=== PATIENT | male | born 1965 | race Caucasian/White ===

== ENCOUNTER → 2017-04-18 | Outpatient (CLI) | payer OTHER ==
--- NOTE | 2017-04-18 22:56 | US ---
EXAMINATION TYPE: US carotid duplex BILAT DATE OF EXAM: 04/18/2017 COMPARISON: NONE CLINICAL HISTORY: 51-year-old male H53.9 Visual Disturbance. TECHNIQUE: Carotid duplex ultrasound examination. Indirect Doppler criteria was utilized. FINDINGS: EXAM MEASUREMENTS: RIGHT: Peak Systolic Velocity (PSV) cm/sec ----- Right CCA: 93.0 ----- Right ICA: 90.8 ----- Right ECA: 141.9 ICA/CCA ratio: 1.0 RIGHT: End Diastole cm/sec ----- Right CCA: 23.6 ----- Right ICA: 23.7 ----- Right ECA: 22.8 LEFT: Peak Systolic Velocity (PSV) cm/sec ----- Left CCA: 101.7 ----- Left ICA: 100.5 ----- Left ECA: 114.8 ICA/CCA ratio: 1.0 LEFT: End Diastole cm/sec ----- Left CCA: 25.4 ----- Left ICA: 22.7 ----- Left ECA: 19.8 VERTEBRALS (direction of flow): Right Vertebral: Antegrade Left Vertebral: Antegrade Mild atherosclerotic change in the right bifurcation. IMPRESSION: No hemodynamically significant stenosis appreciated in either internal carotid artery. Criteria for Assigning % of Stenosis / Diameter reduction (Estimation based on the indirect measurements of the internal carotid artery velocities (ICA PSV). 1. Normal (no stenosis)=ICA PSV < 125 cm/s: ratio < 2.0: ICA EDV<40 cm/s. 2. Less than 50% stenosis=ICA PSV < 125 cm/s: ratio < 2.0: ICA EDV<40 cm/s. 3. 50 to 69% stenosis=ICA PSV of 125 to 230 cm/s: ration 2.0 ? 4.0: ICA EDV 40-100 cm/s. 4. Greater than 70% stenosis to near occlusion= ICA PSV > 230 cm/s: ratio > 4.0: ICA EDV > 100 cm/s. 5. Near occlusion= ICA PSV velocities may be low or undetectable: variable ratio and ICA EDV. 6. Total occlusion=unable to detect flow.
== END ==
LOC: RADUSWWP 16:03
PROVIDERS: ATTEND Family Medicine
DX: H53.9 Unspecified visual disturbance (principal)
CPT/HCPCS: 93880

== ENCOUNTER → 2023-06-19 | Outpatient (CLI) | payer MEDICARE, OTHER ==
--- NOTE | 2023-06-19 11:28 | CT ---
EXAMINATION TYPE: CT heart w calcium score DATE OF EXAM: 06/19/2023 COMPARISON: HISTORY: Screening for cardiovascular disorder. 213.9 CT DLP: 450.7 mGycm Automated exposure control for dose reduction was used. CT CALCIUM SCORING Coronary calcium is a marker for plaque (fatty deposits) in a blood vessel or atherosclerosis (harden ing of the arteries). The presence and amount of calcium detected in a coronary artery by the CT sca n, indicates the presence and amount of atherosclerotic plaque. These calcium deposits appear years before the development of heart disease symptoms such as chest pain and shortness of breath. A calcium score is computed for each of the coronary arteries based upon the volume and density of th e calcium deposits. This can be referred to as your calcified plaque burden. It does not correspond directly to the percentage of narrowing in the artery but does correlate with the severity of the un derlying coronary atherosclerosis. PROCEDURE TECHNIQUE - Prospective Gating was used. Slice thickness: 3mm. Density threshold (HU): 130, Pixel threshold: 3, Algorithm: discrete. RESULTS Region: LM Calcium Score ([place]): 1.1 Volume (mm3): 3.31 Mass (g): 1.1 Region: RCA Calcium Score ([place]): 18.4 Volume (mm3): 28.71 Mass (g): 9.57 Region: LAD Calcium Score ([place]): 169.13 Volume (mm3): 167.85 Mass (g): 55.95 Region: CX Calcium Score ([place]): 21.72 Volume (mm3): 25.95 Mass (g): 8.65 Region: PDA Calcium Score ([place]): 0 Volume (mm3): 0 Mass (g): 0 Total: Calcium Score ([place]): 210.35 Volume (mm3): 225.82 Mass (g): 75.27 TOTAL CALCIUM SCORE: 210.35 Other: Calcified granuloma in the left upper lobe. IMPRESSION: Calcium Score: 210.35 Implication: Definite at least moderate atherosclerotic plaque likely, significant narrowings possib le. = CALCIUM SCORE IMPLICATION RISK OF C ORONARY ARTERY DISEASE 0 No identifiable plaque Very low, generally less than 5% 1-10 Minimal identifiable plaque Very unlikely, less than 10% 11-100 Definite, at least mild atherosclerotic plaque Mild or m inimal coronary narrowings likely 101-400 Definite, at least moderate atherosclerotic plaque Mild coronary ar eloina disease highly likely, significant narrowing possible 401 or Higher Extensive atherosclerotic plaque High lik elihood of at least one significant coronary narrowing
== END | disposition home or self-care (01) ==
LOC: RADCTMAIN 09:27
PROVIDERS: ATTEND Family Medicine
DX: Z13.6 Encounter for screening for cardiovascular disorders (principal); I25.10 Atherosclerotic heart disease of native coronary artery without angina pectoris
CPT/HCPCS: 75571

== ENCOUNTER 2023-06-21 13:24 | Observation (INO) | payer MEDICARE, OTHER ==
[2023-06-21 13:43] VITALS: BP 133/74; RESP 20; TEMP 98.9
[2023-06-21 14:05] LABS: Basophils # (A) 0.1 k/uL (0-0.2); Basophils % (A) 1 %; Eosinophils # (A) 0.2 k/uL (0-0.7); Eosinophils % (A) 2 %; HCT 46.7 % (39.0-53.0); HGB 15.5 gm/dL (13.0-17.5); Lymphocytes # (A) 1.6 k/uL (1.0-4.8); Lymphocytes % (A) 18 %; MCH 29.5 pg (25.0-35.0); MCHC 33.2 g/dL (31.0-37.0); MCV 88.9 fL (80.0-100.0); Mean Platelet Volume 6.6; Monocytes # (A) 0.5 k/uL (0-1.0); Monocytes % (A) 6 %; Neutrophils # (A) 6.3 k/uL (1.3-7.7); Neutrophils % (A) 72 %; Platelet Count 255 k/uL (150-450); RBC 5.25 m/uL (4.30-5.90); RDW 13.1 % (11.5-15.5); WBC 8.7 k/uL (3.8-10.6)
[2023-06-21 14:21] LABS: ALT 28 U/L (4-49); AST 24 U/L (17-59); African American GFR (CKD) >90 (>60 ml/min/1.73 sqM); Albumin 3.7 g/dL (3.5-5.0); Alkaline Phosphatase 53 U/L (38-126); Anion Gap 11 mmol/L; Blood Urea Nitrogen 12 mg/dL (9-20); Calcium 8.7 mg/dL (8.4-10.2); Carbon Dioxide 25 mmol/L (22-30); Chloride 100 mmol/L (98-107); Glucose 103 mg/dL (74-99); Non-African American GFR(CKD) >90 (>60 ml/min/1.73 sqM); Potassium 4.1 mmol/L (3.5-5.1); Sodium 136 mmol/L (137-145); Total Bilirubin 0.5 mg/dL (0.2-1.3); Total Protein 6.3 g/dL (6.3-8.2)
--- NOTE | 2023-06-21 14:34 | ED ---
General Adult HPI - General Chief complaint: Shortness of Breath Stated complaint: Heart,Abn Labs Time Seen by Provider: 06/21/23 14:15 Source: patient, RN notes reviewed, old records reviewed Mode of arrival: wheelchair - History of Present Illness Initial comments: This a 58-year-old male who is morbidly obese she presents emergency Department complaining that he had chest pain yesterday and last few hours it was in the center of his chest. Patient states it was unlike any chest pain he had the past. Patient states she recently had a CAT scan with a calcium score that was not good he states. Patient states he woke up this morning he no longer had chest pain. Patient denies any radiation of the pain. Patient denies any diaphoretic episodes. Patient denies any shortness of breath that worsened with the pain. Patient states he has noted the last few weeks that he has been having quite a bit shortness of breath with exertion however. Patient denies any fever chills or cough per patient denies abdominal pain patient denies any swelling to the legs or calf tenderness. - Related Data Home Medications Medication Instructions Recorded Confirmed Albuterol Inhaler [Ventolin Hfa 2 puff INHALATION RT-TID 05/01/15 06/21/23 Inhaler] Cholecalciferol [Vitamin D3 (125 125 mcg PO DAILY 06/21/23 06/21/23 Mcg = 5000 Iu)] Ipratropium-Albuterol Nebulize 3 ml INHALATION RT-BID 06/21/23 06/21/23 [Duoneb 0.5 mg-3 mg/3 ml Soln] Allergies Allergy/AdvReac Type Severity Reaction Status Date / Time No Known Allergies Allergy Verified 06/21/23 15:21 Review of Systems ROS Statement: Those systems with pertinent positive or pertinent negative responses have been documented in the HPI. ROS Other: All systems not noted in ROS Statement are negative. Past Medical History Past Medical History: Asthma, COPD, GERD/Reflux, Hyperlipidemia, Musculoskeletal Disorder Additional Past Medical History / Comment(s): 09/23/15 Pt admitted to floor s/p laparoscopic geovanna fundoplasty and lysis of adhesions. Other HX: WAS TOLD PROBABLE SLEEP APNEA, NOT TESTED. PAIN COLTEN FEET FROM PLANTAR FASCITIS, & LT SHOULDER discomfort. HIATAL HERNIA. History of Any Multi-Drug Resistant Organisms: None Reported Past Surgical History: Bowel Resection, Hernia Repair Additional Past Surgical History / Comment(s): 09/23/15 Lap geovanna fundoplasty lysis of adhesions. Other surgical hx: CYST BENIGN REMOVED NEAR LT EYE, COLONOSCOPY, EGD, Laparoscopic RT Colectomy 05/06/2015, then Repair Wound Dehiscence 05/22/15. Past Anesthesia/Blood Transfusion Reactions: No Reported Reaction Past Psychological History: No Psychological Hx Reported Smoking Status: Current every day smoker Past Alcohol Use History: None Reported Past Drug Use History: Marijuana - Past Family History Mother Family Medical History: Cancer Additional Family Medical History / Comment(s): Mother of BREAST cancer at age 73 yrs. Father Family Medical History: Cancer Additional Family Medical History / Comment(s): Father of LUNG cancer at age 74yrs. Brother(s) Family Medical History: Cancer Additional Family Medical History / Comment(s): BRAIN General Exam - General Exam Comments Initial Comments: GENERAL: Patient is well-developed and well-nourished. Patient is nontoxic and well- hydrated and is in no acute distress. ENT: Neck is soft and supple. No significant lymphadenopathy is noted. Oropharynx is clear. Moist mucous membranes. Neck has full range of motion without eliciting any pain. EYES: The sclera were anicteric and conjunctiva were pink and moist. Extraocular movements were intact and pupils were equal round and reactive to light. Eyelids were unremarkable. PULMONARY: Unlabored respirations. Good breath sounds bilaterally. No audible rales rhonchi or wheezing was noted. CARDIOVASCULAR: There is a regular rate and rhythm without any murmurs gallops or rubs. ABDOMEN: Soft and nontender with normal bowel sounds. SKIN: Skin is clear with no lesions or rashes and otherwise unremarkable. NEUROLOGIC: Patient is alert and oriented x3. Cranial nerves II through XII are grossly intact. Motor and sensory are also intact. Normal speech, volume and content. Symmetrical smile. MUSCULOSKELETAL: Normal extremities with adequate strength and full range of motion. No lower extremity swelling or edema. No calf tenderness. LYMPHATICS: No significant lymphadenopathy is noted PSYCHIATRIC: Normal psychiatric evaluation. Course Vital Signs 06/21/23 13:32 Temperature 98.9 F Pulse Rate 76 Respiratory 20 Rate Blood Pressure 133/74 O2 Sat by Pulse 98 Oximetry Medical Decision Making - Medical Decision Making EKG was interpreted by myself. EKG shows a sinus rhythm at 73 bpm IL interval 253 QRS the 110 QT interval 370 QTC is 44. Patient's EKG shows no ST segment elevation or depression. Was pt. sent in by a medical professional or institution ([facility], [employer], urgent care, hospital, or usp...) When possible be specific @ -Patient was told to come to the emergency department from the primary medical care doctor Did you speak to anyone other than the patient for history (EMS, parent, family, police, friend...)? What history was obtained from this source @ -No Did you review nursing and triage notes (agree or disagree)? Why? @ -I reviewed and agree with nursing and triage notes Were old charts reviewed (outside hosp., previous admission, EMS record, old EKG, old radiological studies, urgent care reports/EKG's, usp records)? Report findings @ -I reviewed prior charts in prior laboratory on this patient Differential Diagnosis (chest pain, altered mental status, abdominal pain women, abdominal pain men, vaginal bleeding, weakness, fever, dyspnea, syncope, heada silas, dizziness, GI bleed, back pain, seizure, CVA, palpatations, mental health, musculoskeletal)? @ -Differential Chest Pain: Stable Angina, Unstable Angina, STEMI, NSTEMI Aortic Dissection, Pneumothorax, Musculoskeletal, Esophageal Spasm GERD, Cholecystitis, Pancreatitis, Zoster, this is not meant to be an all-inclusive list. EKG interpreted by me (3pts min.). @ -As above X-rays interpreted by me (1pt min.). @ -Chest x-ray shows no acute abnormality CT interpreted by me (1pt min.). @ -None done U/S interpreted by me (1pt. min.). @ -None done What testing was considered but not performed or refused? (CT, X-rays, U/S, labs)? Why? @ -None What meds were considered but not given or refused? Why? @ -None Did you discuss the management of the patient with other professionals (professionals i.e. [facility], [employer], lab, RT, psych nurse, case management social worker, airline operations agent, teacher, chief communications officer, case management social worker)? Give summary @ -I spoke with sound physician's and the agreed to admit the patient admitted the patient wrote admitting orders Was smoking cessation discussed for >3mins.? @ -No Was critical care preformed (if so, how long)? @ -No Were there social determinants of health that impacted care today? How? (Homelessness, low income, unemployed, alcoholism, drug addiction, transportation, low edu. Level, literacy, decrease access to med. care, group home, rehab)? @ -No Was there de-escalation of care discussed even if they declined (Discuss DNR or withdrawal of care, Hospice)? DNR status @ -No What co-morbidities impacted this encounter? (DM, HTN, Smoking, COPD, CAD, Cancer, CVA, ARF, Chemo, Hep., AIDS, mental health diagnosis, sleep apnea, morbid obesity)? @ -None Was patient admitted / discharged? Hospital course, mention meds given and route, prescriptions, significant lab abnormalities, going to OR and other pertinent info. @ -Patient's troponin was negative patient had no chest pain at the moment. Patient also had a CT for a calcium score which was 210. I spoke with sound physician's agreed to admit the patient to the patient I wrote admitting orders I consulted cardiology Undiagnosed new problem with uncertain prognosis? @ -No Drug Therapy requiring intensive monitoring for toxicity (Heparin, Nitro, Insulin, Cardizem)? @ -No Were any procedures done? @ -No Diagnosis/symptom? @ -Chest pain Acute, or Chronic, or Acute on Chronic? @ -Acute Uncomplicated (without systemic symptoms) or Complicated (systemic symptoms)? @ -Complicated Side effects of treatment? @ -No Exacerbation, Progression, or Severe Exacerbation? @ -No Poses a threat to life or bodily function? How? (Chest pain, USA, LA, pneumonia, PE, COPD, DKA, ARF, appy, cholecystitis, CVA, Diverticulitis, Homicidal, Suicidal, threat to staff... and all critical care pts) @ -Yes this could lead to an LA and an organ dysfunction - Lab Data Result diagrams: 06/21/23 13:52 06/21/23 13:52 Lab Results 06/21/23 06/21/23 06/21/23 Range/Units 13:52 13:52 13:52 WBC 8.7 (3.8-10.6) k/uL RBC 5.25 (4.30-5.90) m/uL Hgb 15.5 (13.0-17.5) gm/dL Hct 46.7 (39.0-53.0) % MCV 88.9 (80.0-100.0) fL MCH 29.5 (25.0-35.0) pg MCHC 33.2 (31.0-37.0) g/dL RDW 13.1 (11.5-15.5) % Plt Count 255 (150-450) k/uL MPV 6.6 Neutrophils % 72 % Lymphocytes % 18 % Monocytes % 6 % Eosinophils % 2 % Basophils % 1 % Neutrophils # 6.3 (1.3-7.7) k/uL Lymphocytes # 1.6 (1.0-4.8) k/uL Monocytes # 0.5 (0-1.0) k/uL Eosinophils # 0.2 (0-0.7) k/uL Basophils # 0.1 (0-0.2) k/uL D-Dimer 0.40 (<0.60) mg/L FEU Sodium 136 L (137-145) mmol/L Potassium 4.1 (3.5-5.1) mmol/L Chloride 100 (98-107) mmol/L Carbon Dioxide 25 (22-30) mmol/L Anion Gap 11 mmol/L BUN 12 (9-20) mg/dL Creatinine 0.67 (0.66-1.25) mg/dL Est GFR (CKD-EPI)AfAm >90 (>60 ml/min/1.73 sqM) Est GFR (CKD-EPI)NonAf >90 (>60 ml/min/1.73 sqM) Glucose 103 H (74-99) mg/dL Calcium 8.7 (8.4-10.2) mg/dL Total Bilirubin 0.5 (0.2-1.3) mg/dL AST 24 (17-59) U/L ALT 28 (4-49) U/L Alkaline Phosphatase 53 (38-126) U/L Troponin I (0.000-0.034) ng/mL NT-Pro-B Natriuret Pep pg/mL Total Protein 6.3 (6.3-8.2) g/dL Albumin 3.7 (3.5-5.0) g/dL 06/21/23 06/21/23 Range/Units 13:52 13:52 WBC (3.8-10.6) k/uL RBC (4.30-5.90) m/uL Hgb (13.0-17.5) gm/dL Hct (39.0-53.0) % MCV (80.0-100.0) fL MCH (25.0-35.0) pg MCHC (31.0-37.0) g/dL RDW (11.5-15.5) % Plt Count (150-450) k/uL MPV Neutrophils % % Lymphocytes % % Monocytes % % Eosinophils % % Basophils % % Neutrophils # (1.3-7.7) k/uL Lymphocytes # (1.0-4.8) k/uL Monocytes # (0-1.0) k/uL Eosinophils # (0-0.7) k/uL Basophils # (0-0.2) k/uL D-Dimer (<0.60) mg/L FEU Sodium (137-145) mmol/L Potassium (3.5-5.1) mmol/L Chloride (98-107) mmol/L Carbon Dioxide (22-30) mmol/L Anion Gap mmol/L BUN (9-20) mg/dL Creatinine (0.66-1.25) mg/dL Est GFR (CKD-EPI)AfAm (>60 ml/min/1.73 sqM) Est GFR (CKD-EPI)NonAf (>60 ml/min/1.73 sqM) Glucose (74-99) mg/dL Calcium (8.4-10.2) mg/dL Total Bilirubin (0.2-1.3) mg/dL AST (17-59) U/L ALT (4-49) U/L Alkaline Phosphatase (38-126) U/L Troponin I <0.012 (0.000-0.034) ng/mL NT-Pro-B Natriuret Pep <20 pg/mL Total Protein (6.3-8.2) g/dL Albumin (3.5-5.0) g/dL Disposition Clinical Impression: Chest pain Disposition: ADMITTED IP TO THIS HOSP Referrals: Ovidio Peng MD [Primary Care Provider] - 1-2 days Time of Disposition: 18:00
--- NOTE | 2023-06-21 15:11 | XR ---
EXAMINATION TYPE: XR chest 2V DATE OF EXAM: 06/21/2023 COMPARISON: NONE HISTORY: Shortness of breath TECHNIQUE: Frontal and lateral views of the chest are obtained. FINDINGS: Scattered senescent parenchymal changes noted. Hyperinflation compatible with COPD. No evidence for infiltrate. No evidence for atelectasis. Heart size is stable. Mediastinal structures are stable and grossly unremarkable. No evidence for hilar prominence. Degenerative changes dorsal spine. IMPRESSION: 1. No evidence for acute pulmonary disease.
[2023-06-21] MEDS ORDERED: ACETAMINOPHEN TAB 325 MG TAB PO PRN (16:24)
[2023-06-21] MEDS ORDERED: NALOXONE 0.4 MG/ML 1 ML VIAL IV PRN (16:24)
[2023-06-21] MEDS ORDERED: NITROGLYCERIN SL TABS 0.4 MG TAB SUBLINGUAL PRN (16:27)
--- NOTE | 2023-06-21 16:27 | P.HPIM ---
History of Present Illness H&P Date: 06/21/23 Patient is a 58-year-old male with history of asthma/COPD, nicotine dependence presenting with chest pain. He claims that he has been having exertional dyspnea for a long time. He was evaluated by his PCP, and had CT coronary that showed elevated calcium score. During that time he was complaining of chest pain. He claims that his chest pain started last night, central, pressure-like, nonradiating and lasted only about 15 minutes. He was resting at that time. He was subsequently asked by his PCP to be evaluated in the ER. Currently he denies any chest pain, shortness of breath, abdominal pain, nausea, vomiting, urinary or bowel complaints. He denies any recent illness, fevers, chills, sick contacts or travel history. Smokes 1 pack per day, denies any alcohol use or illicit drug use. In the ED, temperature was 98.9, pulse 76, blood pressure 133/74, respiratory ra te 20, saturating at 98% on room air. WBC 8.7, hemoglobin 15.5, sodium 136, d- dimer 0.4, creatinine 0.67, troponin negative, proBNP negative. Chest x-ray independently interpreted negative for any acute process. EKG independently interpreted shows normal sinus rhythm. Patient admitted for observation for chest pain. Pertinent positives and negatives as discussed in HPI, a complete review of systems was performed and all other systems are negative. Patient seen and examined at bedside. Vital signs reviewed General: nontoxic, no distress, appears at stated age, morbidly obese Derm: warm, dry Head: atraumatic, normocephalic, symmetric Eyes: EOMI, no lid lag, anicteric sclera, pupils equal round reactive to light ENT: Nose and ears atraumatic Neck: No thyromegaly, supple Mouth: no lip lesion, mucus membranes moist Cardiovascular: S1S2 reg, no murmur, no edema Lungs: clear to auscultation bilateral, no rhonchi, no rales, no wheeze, no accessory muscle use Abdominal: soft, nontender to palpation, no guarding, no appreciable organomegaly Ext: no gross muscle atrophy, muscle strength muscle strength 5 out of 5 in all 4 extremities, no contractures Neuro: CN II-XII grossly intact Psych: Alert, oriented, appropriate affect Assessment/Plan: Chest pain, rule out ACS Nicotine dependence Morbidly obese -Trend troponin -Telemetry -Cardiology consulted -A1c, lipid panel, TSH pending Chronic: COPD/asthma The patient is admitted with an anticipated less than 2 midnight stay as observation status for evaluation of chest pain. Surrogate decision-maker: Spouse CODE STATUS: Full code DVT prophylaxis: Subcu heparin Anticipated discharge date: Pending clinical course Anticipated discharge place: Pending clinical course A total of 65 minutes was spent on the care of this complex patient more than 50% of the time was spent in counseling and care coordination. Past Medical History Past Medical History: Asthma, COPD, GERD/Reflux, Hyperlipidemia, Musculoskeletal Disorder Additional Past Medical History / Comment(s): 09/23/15 Pt admitted to floor s/p laparoscopic geovanna fundoplasty and lysis of adhesions. Other HX: WAS TOLD PROBABLE SLEEP APNEA, NOT TESTED. PAIN COLTEN FEET FROM PLANTAR FASCITIS, & LT SHOULDER discomfort. HIATAL HERNIA. History of Any Multi-Drug Resistant Organisms: None Reported Past Surgical History: Bowel Resection, Hernia Repair Additional Past Surgical History / Comment(s): 09/23/15 Lap geovanna fundoplasty lysis of adhesions. Other surgical hx: CYST BENIGN REMOVED NEAR LT EYE, COLONOSCOPY, EGD, Laparoscopic RT Colectomy 05/06/2015, then Repair Wound Dehiscence 05/22/15. Past Anesthesia/Blood Transfusion Reactions: No Reported Reaction Past Psychological History: No Psychological Hx Reported Smoking Status: Current every day smoker Past Alcohol Use History: None Reported Past Drug Use History: Marijuana - Past Family History Mother Family Medical History: Cancer Additional Family Medical History / Comment(s): Mother of BREAST cancer at age 73 yrs. Father Family Medical History: Cancer Additional Family Medical History / Comment(s): Father of LUNG cancer at age 74yrs. Brother(s) Family Medical History: Cancer Additional Family Medical History / Comment(s): BRAIN Medications and Allergies Home Medications Medication Instructions Recorded Confirmed Type Albuterol Inhaler [Ventolin Hfa 2 puff INHALATION RT-TID 05/01/15 06/21/23 History Inhaler] Cholecalciferol [Vitamin D3 (125 125 mcg PO DAILY 06/21/23 06/21/23 History Mcg = 5000 Iu)] Ipratropium-Albuterol Nebulize 3 ml INHALATION RT-BID 06/21/23 06/21/23 History [Duoneb 0.5 mg-3 mg/3 ml Soln] Allergies Allergy/AdvReac Type Severity Reaction Status Date / Time No Known Allergies Allergy Verified 06/21/23 15:21 Physical Exam Vitals: Vital Signs Temp Pulse Resp BP Pulse Ox 06/21/23 13:32 98.9 F 76 20 133/74 98 Intake and Output 06/21/23 06/21/23 06/21/23 06:59 14:59 22:59 Other: Weight 172.365 kg Results CBC & Chem 7: 06/21/23 13:52 06/21/23 13:52 Labs: Abnormal Lab Results - Last 24 Hours (Table) 06/21/23 Range/Units 13:52 Sodium 136 L (137-145) mmol/L Glucose 103 H (74-99) mg/dL
[2023-06-21] MEDS ORDERED: NITROGLYCERIN OINT 1 INCH/GM PACKET TOPICAL SCH (18:00)
[2023-06-21 19:46] VITALS: PULSE 77
[2023-06-21] MEDS ORDERED: IPRATROPIUM-ALBUTEROL 3 ML NEB INHALATION SCH (20:00)
[2023-06-21] MEDS ORDERED: ALBUTEROL NEBULIZED 2.5 MG/3 ML INHALATION SCH (20:00)
[2023-06-22] MEDS ORDERED: HEPARIN SODIUM,PORCINE 5,000 UNIT/ML 1 ML VIAL SQ SCH
--- NOTE | 2023-06-22 08:06 | P.DS ---
Providers Date of admission: 06/21/23 18:00 Expected date of discharge: 06/22/23 Attending physician: Mario Santoyo MD Consults: 06/21/23 16:25 Consult Physician Routine Consulting Provider: Radhames Loco Consult Reason/Comments: chest pain Do you want consulting provider notified?: Yes Primary care physician: Ovidio Peng Hospital Course: This is not a discharge summary, this is a summary of care as per documentation in chart patient left AGAINST MEDICAL ADVICE on 06/21/23 at 7:50 PM Diagnosis during hospitalization: Chest pain, rule out acute coronary syndrome Nicotine dependence Morbidly obese with BMI of 54.5 kg/m COPD/asthma Patient left AGAINST MEDICAL ADVICE on 06/21/23 at 7:50 PM This document was prepared using [employer] dictation software. Please allow for errors in gas pumping station operator while rare they do occur. Patient Condition at Discharge: Undetermined Plan - Discharge Summary New Discharge Prescriptions: No Action Albuterol Inhaler [Ventolin Hfa Inhaler] 2 puff INHALATION RT-TID Cholecalciferol [Vitamin D3 (125 Mcg = 5000 Iu)] 125 mcg PO DAILY Ipratropium-Albuterol Nebulize [Duoneb 0.5 mg-3 mg/3 ml Soln] 3 ml INHALATION RT-BID Discharge Medication List Albuterol Inhaler [Ventolin Hfa Inhaler] 2 puff INHALATION RT-TID 05/01/15 [History] Cholecalciferol [Vitamin D3 (125 Mcg = 5000 Iu)] 125 mcg PO DAILY 06/21/23 [History] Ipratropium-Albuterol Nebulize [Duoneb 0.5 mg-3 mg/3 ml Soln] 3 ml INHALATION RT-BID 06/21/23 [History] Follow up Appointment(s)/Referral(s): Ovidio Peng MD [Primary Care Provider] - 1-2 days Discharge Disposition: LEFT AGAINST MEDICAL ADVICE
[2023-06-22] MEDS ORDERED: NICOTINE 21MG/24HR PATCH TRANSDERM SCH (09:00)
[2023-06-22] MEDS ORDERED: ASPIRIN 325 MG TAB PO SCH (09:00)
[2023-06-22] MEDS ORDERED: CHOLECALCIFEROL 125 MCG (5000 IU) TABLET PO SCH (09:00)
== END 2023-06-21 19:54 | disposition left against medical advice (07) ==
LOC: EC 13:24 → 6NMEDSUR 18:00
PROVIDERS: ADMIT Family Medicine; ATTEND Family Medicine
DX: R07.9 Chest pain, unspecified (principal); J44.9 Chronic obstructive pulmonary disease, unspecified; K21.9 Gastro-esophageal reflux disease without esophagitis; E78.5 Hyperlipidemia, unspecified; F17.200 Nicotine dependence, unspecified, uncomplicated; E66.01 Morbid (severe) obesity due to excess calories; Z68.43 Body mass index [BMI] 50.0-59.9, adult; Z79.899 Other long term (current) drug therapy; Z53.29 Procedure and treatment not carried out because of patient's decision for other reasons
CPT/HCPCS: 99285; 36415; 94640; 93005; 85379; 83880; 80053; 84484; 85025; 71046; G0378

== ENCOUNTER → 2024-03-29 | Outpatient (CLI) | payer MEDICARE, OTHER ==
--- NOTE | 2024-03-29 10:33 | US ---
EXAMINATION TYPE: US thyroid st tissue head/neck DATE OF EXAM: 03/29/2024 COMPARISON: NONE CLINICAL INDICATION: Male, 58 years old with history of E04.9 NONTOXIC GOITER, UNSPECIFIED; GLAND SIZE: Right Lobe: 5.3 x 2.1 x 2.4 cm Overall Parenchyma: heterogeneous Left Lobe: 4.8 x 1.5 x 1.5 cm Overall Parenchyma: heterogeneous Isthmus Thickness: 0.5 cm NODULES RIGHT: # of nodules measured on right: 0 LEFT: # of nodules measured on left: 0 ISTHMUS: # of nodules measured in the isthmus: 0 Bilateral neck scanned, no evidence of lymphadenopathy. IMPRESSION: No thyroid nodules. 2017 ACR TI-RADS LEVEL: *Highest TI-RADS level nodule reported
== END | disposition home or self-care (01) ==
LOC: RADUSWWP 08:18
PROVIDERS: ATTEND Family Medicine
DX: E04.1 Nontoxic single thyroid nodule (principal)
CPT/HCPCS: 76536

== ENCOUNTER 2025-03-20 01:58 | Emergency (ER) | payer MEDICARE, OTHER ==
--- NOTE | 2025-03-20 02:48 | ED ---
General Adult HPI - General Chief complaint: Abdominal Pain Stated complaint: Abd Pain Time Seen by Provider: 03/20/25 02:02 Source: patient Mode of arrival: EMS Limitations: no limitations - History of Present Illness Initial comments: Patient is a 59-year-old on the past medical history COPD multiple prior abdominal surgeries, prior colectomy, presenting today for abdominal pain. Last bowel movement was small in volume, yesterday morning. States he has not passed gas all day. Endorsing diffuse anterior abdominal pain. Concerned that he has a bowel obstruction. Endorses nausea but no emesis. No melena or hematochezia, no dysuria, urinary frequency or hematuria. Patient is not on blood thinners. Denies fevers endorses chills. Denies chest pain or shortness of breath. - Related Data Home Medications Medication Instructions Recorded Confirmed Albuterol Inhaler [Ventolin Hfa 2 puff INHALATION RT-TID 05/01/15 06/21/23 Inhaler] Cholecalciferol [Vitamin D3 (125 125 mcg PO DAILY 06/21/23 06/21/23 Mcg = 5000 Iu)] Ipratropium-Albuterol Nebulize 3 ml INHALATION RT-BID 06/21/23 06/21/23 [Duoneb 0.5 mg-3 mg/3 ml Soln] Allergies Allergy/AdvReac Type Severity Reaction Status Date / Time No Known Allergies Allergy Verified 06/21/23 15:21 Review of Systems ROS Statement: Those systems with pertinent positive or pertinent negative responses have been documented in the HPI. ROS Other: All systems not noted in ROS Statement are negative. Past Medical History Past Medical History: Asthma, COPD, GERD/Reflux, Hyperlipidemia, Musculoskeletal Disorder Additional Past Medical History / Comment(s): 09/23/15 Pt admitted to floor s/p laparoscopic geovanna fundoplasty and lysis of adhesions. Other HX: WAS TOLD PROBABLE SLEEP APNEA, NOT TESTED. PAIN COLTEN FEET FROM PLANTAR FASCITIS, & LT SHOULDER discomfort. HIATAL HERNIA. History of Any Multi-Drug Resistant Organisms: None Reported Past Surgical History: Bowel Resection, Hernia Repair Additional Past Surgical History / Comment(s): 09/23/15 Lap geovanna fundoplasty lysis of adhesions. Other surgical hx: CYST BENIGN REMOVED NEAR LT EYE, COLONOSCOPY, EGD, Laparoscopic RT Colectomy 05/06/2015, then Repair Wound Dehiscence 05/22/15. Past Anesthesia/Blood Transfusion Reactions: No Reported Reaction Past Psychological History: Anxiety Smoking Status: Current every day smoker Past Alcohol Use History: None Reported Past Drug Use History: Marijuana - Past Family History Mother Family Medical History: Cancer Additional Family Medical History / Comment(s): Mother of BREAST cancer at age 73 yrs. Father Family Medical History: Cancer Additional Family Medical History / Comment(s): Father of LUNG cancer at age 74yrs. Brother(s) Family Medical History: Cancer Additional Family Medical History / Comment(s): BRAIN General Exam - General Exam Comments Initial Comments: PE: CONSTITUTIONAL: Nontoxic, uncomfortable appearing SKIN: Warm, dry, no jaundice, hives or petechiae EYES: Pupils are equally round, extraocular movements intact without nystagmus, clear conjunctiva, non-icteric sclera HENT: Normocephalic, atraumatic, moist mucus membranes, oropharynx clear without exudates NECK: , Full range of motion, normal appearance PULMONARY: Clear to auscultation scant wheezes bilaterally without, rhonchi, or rales, normal excursion, no accessory muscle use and no stridor CARDIOVASCULAR: Regular rate, rhythm, normal S1 and S2. No appreciated murmurs, rubs or gallops. Strong radial pulses with intact distal perfusion. No lower extremity edema GASTROINTESTINAL: Abdominal exam is limited by patient's body habitus, diffusely tender, however predominantly in the periumbilical region, active bowel sounds along right side, hypoactive on left side soft, nondistended no hepatosplenomegaly GENITOURINARY: MUSCULOSKELETAL: Extremities have no gross deformity, no edema, redness, or swelling. NEUROLOGIC:_a/o x 3, GCS 15, normal mentation and speech. Moves all extremities x 4 without motor or sensory deficit PSYCHIATRIC:_normal mood and affect, thought process is clear and linear Limitations: no limitations Course Vital Signs 03/20/25 03/20/25 03/20/25 02:01 04:04 05:00 Temperature 97 F L 98.5 F Pulse Rate 68 57 L 64 Respiratory 20 18 18 Rate Blood Pressure 147/76 129/74 145/81 O2 Sat by Pulse 95 100 100 Oximetry 03/20/25 03/20/25 06:00 07:40 Temperature 98.3 F Pulse Rate 67 77 Respiratory 18 20 Rate Blood Pressure 140/81 118/78 O2 Sat by Pulse 97 97 Oximetry Medical Decision Making - Medical Decision Making Was pt. sent in by a medical professional or institution (MEMO Benavides, CRINKLING MACHINE OPERATOR, urgent care, hospital, or longterm...) When possible be specific @ -No Did you speak to anyone other than the patient for history (EMS, parent, family, police, friend...)? What history was obtained from this source @ -No Did you review nursing and triage notes (agree or disagree)? Why? @ -I reviewed nursing and triage notes Were old charts reviewed (outside hosp., previous admission, EMS record, old EKG, old radiological studies, urgent care reports/EKG's, longterm records)? Report findings @ -Medical records reviewed patient has CT abdomen pelvis performed 10/24/2024, report showed no change in the large ventral hernia containing multiple nondilated nonstrangulated loops of bowel Differential Diagnosis (chest pain, altered mental status, abdominal pain women, abdominal pain men, vaginal bleeding, weakness, fever, dyspnea, syncope, headache, dizziness, GI bleed, back pain, seizure, CVA, palpatations, mental health, musculoskeletal)? @Differential Abdominal Pain Men: Appendicitis, cholecystitis, diverticulosis, ischemic bowel, pancreatitis, hepatitis, UTI, gastroenteritis, AAA, incarcerated hernia, bowel obstruction, constipation, inflammatory bowel, hepatitis, peptic ulcer disease, splenic infarction, perforated viscus, testicular torsion, this is not meant to be an all-inclusive list EKG interpreted by me (3pts min.). @ -As above X-rays interpreted by me (1pt min.). @ -None done CT interpreted by me (1pt min.). @Personally reviewed CT scan, patient has dilated bowel loops concerning for small bowel obstruction, agree with radiologist interpretation U/S interpreted by me (1pt. min.). @ -None done What testing was considered but not performed or refused? (CT, X-rays, U/S, labs)? Why? @ -None What meds were considered but not given or refused? Why? @ -None Did you discuss the management of the patient with other professionals (professionals i.e. MEMO Benavides, CRINKLING MACHINE OPERATOR, lab, RT, psych nurse, social worker clinical, cupola charger insulation, teacher, special forces warrant officer, family preservation caseworker)? Give summary @Case was discussed with Dr. Sullivan general surgery, pt's preferred surgeon, Dr. Sullivan recommends transfer as patient may require plastic surgery consultation 2/2 to complexity of case and extent of pannus Was smoking cessation discussed for >3mins.? @ -No Was critical care preformed (if so, how long)? @ -No Were there social determinants of health that impacted care today? How? (Homelessness, low income, unemployed, alcoholism, drug addiction, transportation, low edu. Level, literacy, decrease access to med. care, fdc, rehab)? @ -No Was there de-escalation of care discussed even if they declined (Discuss DNR or withdrawal of care, Hospice)? @ -No What co-morbidities impacted this encounter? (DM, HTN, Smoking, COPD, CAD, Cancer, CVA, ARF, Chemo, Hep., AIDS, mental health diagnosis, sleep apnea, morbid obesity)? @ -Obesity Was patient admitted / discharged? Hospital course, mention meds given and route, prescriptions, significant lab abnormalities, going to OR and other pertinent info. @ Transfer to [facility]- This is a 59-year-old gentleman presenting today for diffuse abdominal pain, history of multiple abdominal surgeries by Dr. Morejon. On my assessment he is uncomfortable appearing.Abdomen is diffusely tender. Of top consideration is bowel obstruction or perforation. Discussed with patient plan for pain medications labs, CT abdomen pelvis to which he is agreeable. Labs significant for mild leukocytosis, white blood cell of 12.50, lactic is not elevated at 1.5, urinalysis without leukocyte esterase, nitrates or bacteria. CT abdomen/pelvis ultimately read is significant for a large complex midline fat, bowel, colon and mesentery containing ventral hernia, multiple prominent and enlarged bowel loops measuring up to 3.8 cm, transition point is not definitively identified but suspected to be within the left component of the midline fat, bowel, mesentery and colon containing ventral hernia "consider surgical consultation, no evidence of pneumatosis, portal venous gas or free air, however of note incomplete visualization of the anterior abdomen does limit evaluation. Patient no longer wishes to be treated by Dr. Morejon,, request Dr. Sullivan. Discussed case with Dr. Sullivan, recommendations as above. I discussed findings and Dr. Sullivan's recommendations with patient, he prefers transfer. Case was discussed with Dr. Vera [facility] emergency department who kindly accepted patient for admission. Patient will have an NG tube placed and prophylactic cefepime and Flagyl administered prior to transfer. Undiagnosed new problem with uncertain prognosis? @ -No Drug Therapy requiring intensive monitoring for toxicity (Heparin, Nitro, Insulin, Cardizem)? @ -No Were any procedures done? @ -No Diagnosis/symptom? @Bowel obstruction Acute, or Chronic, or Acute on Chronic? @Acute Uncomplicated (without systemic symptoms) or Complicated (systemic symptoms)? @Complicated Side effects of treatment? @ -No Exacerbation, Progression, or Severe Exacerbation? @ -No Poses a threat to life or bodily function? How? (Chest pain, [place], [place], pneumonia, PE, COPD, DKA, ARF, appy, cholecystitis, CVA, Diverticulitis, Homicidal, Suicidal, threat to staff... and all critical care pts) @ -Yes - Lab Data Result diagrams: 03/20/25 02:56 03/20/25 02:56 Lab Results 03/20/25 03/20/25 03/20/25 Range/Units 02:56 02:56 02:56 WBC 12.50 H (4.50-10.00) 10*3/uL RBC 5.68 H (4.40-5.60) 10*6/uL Hgb 15.9 (13.0-17.0) g/dL Hct 48.5 (39.6-50.0) % MCV 85.4 (80.0-97.0) fL MCH 28.0 (27.0-32.0) pg MCHC 32.8 (32.0-37.0) g/dL Plt Count 301 (140-440) 10*3/uL MPV 8.3 L (9.5-12.2) fL Immature Gran % (Auto) 1.0 % Neutrophils % 84.3 % Lymphocytes % 8.0 % Monocytes % 5.5 % Eosinophils % 0.6 % Basophils % 0.6 % Immature Gran # 0.12 H (0.00-0.04) 10*3/uL Neutrophils # 10.55 H (1.80-7.70) 10*3/uL Lymphocytes # 1.00 (0.90-5.00) 10*3/uL Monocytes # 0.69 (0.20-1.00) 10*3/uL Eosinophils # 0.07 (0.04-0.35) 10*3/uL Basophils # 0.07 (0.00-0.10) 10*3/uL PT 10.4 (10.0-12.5) sec INR 0.9 (<1.2) APTT 23.0 (22.0-30.0) sec Sodium 135 L (137-145) mmol/L Potassium 4.7 (3.5-5.1) mmol/L Chloride 97 L (98-107) mmol/L Carbon Dioxide 27 (22-30) mmol/L Anion Gap 11 mmol/L BUN 19 (9-20) mg/dL Creatinine 0.67 (0.66-1.25) mg/dL Est GFR (CKD-EPI)AfAm >90 (>60 ml/min/1.73 sqM) Est GFR (CKD-EPI)NonAf >90 (>60 ml/min/1.73 sqM) Glucose 153 H (74-99) mg/dL Plasma Lactic Acid Chriss (0.7-2.0) mmol/L Calcium 9.3 (8.4-10.2) mg/dL Total Bilirubin 0.8 (0.2-1.3) mg/dL AST 33 (17-59) U/L ALT 23 (4-49) U/L Alkaline Phosphatase 57 (38-126) U/L Total Protein 7.6 (6.3-8.2) g/dL Albumin 4.4 (3.5-5.0) g/dL Amylase 54 (30-110) U/L Lipase 28 (23-300) U/L Urine Color Urine Appearance (Clear) Urine pH (5.0-8.0) Ur Specific [place] (1.001-1.035) Urine Protein (Negative) Urine Glucose (UA) (Negative) Urine Ketones (Negative) Urine Blood (Negative) Urine Nitrite (Negative) Urine Bilirubin (Negative) Urine Urobilinogen (<2.0) mg/dL Ur Leukocyte Esterase (Negative) Urine RBC (0-5) /hpf Urine WBC (0-5) /hpf Ur Squamous Epith Cells (0-4) /hpf Urine Mucus (None) /hpf Urine Yeast (Budding) (None) /hpf 03/20/25 03/20/25 Range/Units 02:56 04:00 WBC (4.50-10.00) 10*3/uL RBC (4.40-5.60) 10*6/uL Hgb (13.0-17.0) g/dL Hct (39.6-50.0) % MCV (80.0-97.0) fL MCH (27.0-32.0) pg MCHC (32.0-37.0) g/dL Plt Count (140-440) 10*3/uL MPV (9.5-12.2) fL Immature Gran % (Auto) % Neutrophils % % Lymphocytes % % Monocytes % % Eosinophils % % Basophils % % Immature Gran # (0.00-0.04) 10*3/uL Neutrophils # (1.80-7.70) 10*3/uL Lymphocytes # (0.90-5.00) 10*3/uL Monocytes # (0.20-1.00) 10*3/uL Eosinophils # (0.04-0.35) 10*3/uL Basophils # (0.00-0.10) 10*3/uL PT (10.0-12.5) sec INR (<1.2) APTT (22.0-30.0) sec Sodium (137-145) mmol/L Potassium (3.5-5.1) mmol/L Chloride (98-107) mmol/L Carbon Dioxide (22-30) mmol/L Anion Gap mmol/L BUN (9-20) mg/dL Creatinine (0.66-1.25) mg/dL Est GFR (CKD-EPI)AfAm (>60 ml/min/1.73 sqM) Est GFR (CKD-EPI)NonAf (>60 ml/min/1.73 sqM) Glucose (74-99) mg/dL Plasma Lactic Acid Chriss 1.5 (0.7-2.0) mmol/L Calcium (8.4-10.2) mg/dL Total Bilirubin (0.2-1.3) mg/dL AST (17-59) U/L ALT (4-49) U/L Alkaline Phosphatase (38-126) U/L Total Protein (6.3-8.2) g/dL Albumin (3.5-5.0) g/dL Amylase (30-110) U/L Lipase (23-300) U/L Urine Color Yellow Urine Appearance Cloudy (Clear) Urine pH 8.0 (5.0-8.0) Ur Specific [place] 1.043 H (1.001-1.035) Urine Protein Trace H (Negative) Urine Glucose (UA) Negative (Negative) Urine Ketones Negative (Negative) Urine Blood Negative (Negative) Urine Nitrite Negative (Negative) Urine Bilirubin Negative (Negative) Urine Urobilinogen <2.0 (<2.0) mg/dL Ur Leukocyte Esterase Negative (Negative) Urine RBC 10 H (0-5) /hpf Urine WBC 1 (0-5) /hpf Ur Squamous Epith Cells <1 (0-4) /hpf Urine Mucus Rare H (None) /hpf Urine Yeast (Budding) Many H (None) /hpf Disposition Clinical Impression: Small bowel obstruction Disposition: OTHER INSTITUTION NOT DEFINED Condition: Stable Is patient prescribed a controlled substance at d/c from ED?: No Referrals: Ovidio Peng MD [Primary Care Provider] - 1-2 days - Out of Hospital Transfer - Req. Specs Out of Hospital Transfer - Requested Specifics: Other Emergency Center ([facility])
[2025-03-20] MEDS: ONDANSETRON 4 MG/2 ML VIAL IVP STA ×2 (03:01→04:37)
[2025-03-20] MEDS: HYDROmorphone 1 MG/ML 1 ML SYRINGE IVP STA ×4 (03:02→09:00)
[2025-03-20] MEDS: LACTATED RINGERS 1,000 ML IV ONE (03:04)
[2025-03-20 03:59] LABS: Basophils # (A) 0.07 10*3/uL (0.00-0.10); Basophils % (A) 0.6 %; Eosinophils # (A) 0.07 10*3/uL (0.04-0.35); Eosinophils % (A) 0.6 %; HCT 48.5 % (39.6-50.0); HGB 15.9 g/dL (13.0-17.0); Lymphocytes # (A) 1.00 10*3/uL (0.90-5.00); Lymphocytes % (A) 8.0 %; MCH 28.0 pg (27.0-32.0); MCHC 32.8 g/dL (32.0-37.0); MCV 85.4 fL (80.0-97.0); Monocytes # (A) 0.69 10*3/uL (0.20-1.00); Monocytes % (A) 5.5 %; Neutrophils # (A) 10.55 10*3/uL (1.80-7.70); Neutrophils % (A) 84.3 %; Platelet Count 301 10*3/uL (140-440); RBC 5.68 10*6/uL (4.40-5.60); RDW 13.3 % (11.5-14.5); WBC 12.50 10*3/uL (4.50-10.00)
[2025-03-20 04:13] LABS: ALT 23 U/L (4-49); AST 33 U/L (17-59); African American GFR (CKD) >90 (>60 ml/min/1.73 sqM); Albumin 4.4 g/dL (3.5-5.0); Alkaline Phosphatase 57 U/L (38-126); Amylase 54 U/L (30-110); Anion Gap 11 mmol/L; Blood Urea Nitrogen 19 mg/dL (9-20); Calcium 9.3 mg/dL (8.4-10.2); Carbon Dioxide 27 mmol/L (22-30); Chloride 97 mmol/L (98-107); Glucose 153 mg/dL (74-99); Lipase 28 U/L (23-300); Non-African American GFR(CKD) >90 (>60 ml/min/1.73 sqM); Potassium 4.7 mmol/L (3.5-5.1); Sodium 135 mmol/L (137-145); Total Protein 7.6 g/dL (6.3-8.2)
--- NOTE | 2025-03-20 04:27 | CT ---
EXAM: CT Abdomen and Pelvis With Intravenous Contrast CLINICAL HISTORY: ITS.REASON CT Reason: abdominal pain TECHNIQUE: Axial computed tomography images of the abdomen and pelvis with intravenous contrast. CTDI is 98.7 mGy and DLP is 5581.8 mGy-cm. This CT exam was performed using one or more of the following dose reduction techniques: automated exposure control, adjustment of the mA and/or kV according to patient size, and/or use of iterative reconstruction technique. COMPARISON: No relevant prior studies available. FINDINGS: Limitations: Incomplete visualization of the anterior abdomen limits evaluation. Lung bases: Unremarkable. No mass. No consolidation. ABDOMEN: Liver: Low attenuation foci in the liver some of which are due to cysts. Others are too small to characterize. Gallbladder and bile ducts: Unremarkable. No calcified stones. No ductal dilation. Pancreas: Unremarkable. No mass. No ductal dilation. Spleen: Unremarkable. No splenomegaly. Adrenals: Unremarkable. No mass. Kidneys and ureters: Unremarkable. No solid mass. No hydronephrosis. Stomach and bowel: Large complex midline fat, bowel, colon, and mesentery containing ventral hernia. Multiple prominent and enlarged bowel loops measuring up to 3.8 cm . Transition point is not definitively identified but suspected to be within the left component of the midline fat, bowel, mesentery, and colon containing ventral hernia. Consider surgical consultation. No mucosal thickening. PELVIS: Appendix: No findings to suggest acute appendicitis. Bladder: Unremarkable. No mass. Reproductive: Unremarkable as visualized. ABDOMEN and PELVIS: Intraperitoneal space: Unremarkable. No free air. No significant fluid collection. Bones/joints: Degenerative changes in the spine. No acute fracture. No dislocation. Soft tissues: See above. Vasculature: Atherosclerotic disease. No abdominal aortic aneurysm. Lymph nodes: Unremarkable. No enlarged lymph nodes. IMPRESSION: 1. Incomplete visualization of the anterior abdomen limits evaluation. 2. Large complex midline fat, bowel, colon, and mesentery containing ventral hernia. 3. Multiple prominent and enlarged bowel loops measuring up to 3.8 cm . Transition point is not definitively identified but suspected to be within the left component of the midline fat, bowel, mesentery, and colon containing ventral hernia. Consider surgical consultation. 4. No gross evidence of pneumatosis, portal venous gas, or free air. 5. No other acute findings. 6. Incidental findings as described.
[2025-03-20 04:36] LABS: INR 0.9 (<1.2); Partial Thromboplastin Time 23.0 sec (22.0-30.0); Prothrombin Time 10.4 sec (10.0-12.5)
[2025-03-20 04:43] LABS: Bilirubin,Urine Negative (Negative); Blood,Urine Negative (Negative); Budding Yeast,Urine Many /hpf; Color,Urine Yellow; Glucose,Urine (UA) Negative (Negative); Ketones,Urine Negative (Negative); Leukocyte Esterase,Urine Negative (Negative); Mucus,Urine Rare /hpf; Nitrite,Urine Negative (Negative); PH, Urine 8.0 (5.0-8.0); Protein,Urine Trace (Negative); RBC,Urine 10 /hpf (0-5); Specific Gravity,Urine 1.043 (1.001-1.035); Squamous Epithelial Cell,Urine <1 /hpf (0-4); Urobilinogen,Urine <2.0 mg/dL (<2.0); WBC,Urine 1 /hpf (0-5)
[2025-03-20] MEDS: diphenhydrAMINE 50 MG/ML 1 ML VIAL IVP STA (05:54)
[2025-03-20] MEDS: METOCLOPRAMIDE 5 MG/ML 2 ML VIAL IVP STA (05:58)
[2025-03-20] MEDS: CEFEPIME 2 GM in SODIUM CHLORIDE 0.9% 100 ML IVPB STA (06:13)
[2025-03-20 06:24] VITALS: TEMP 98.3
[2025-03-20] MEDS: metroNIDAZOLE-NS PMX 500 MG in SALINE 1 100ML.BAG IVPB STA (06:44)
[2025-03-20 07:41] VITALS: PULSE 77; RESP 20
[2025-03-20 09:02] VITALS: BP 111/82
--- NOTE | 2025-03-20 09:47 | XR ---
EXAMINATION TYPE: XR chest 1V confirm line plcmt DATE OF EXAM: 03/20/2025 9:15 AM COMPARISON: Chest radiographs from 06/21/2023. CLINICAL INDICATION: Male, 59 years old with history of line placement; [facility] TECHNIQUE: XR chest 1V confirm line plcmt Frontal view of the chest. FINDINGS: Lungs/Pleura: There is no evidence of pleural effusion, focal consolidation, or pneumothorax. Pulmonary vascularity: Unremarkable. Heart/mediastinum: Cardiomediastinal silhouette is unremarkable. Musculoskeletal: No acute osseous pathology. Other findings: None Lines/Tubes: Nasogastric tube with side-port projecting over the distal esophagus. IMPRESSION: Nasogastric tube is poorly visualized due to patient body habitus is thought to be within the esophag us. Consider advancement of at least 15 cm probable placement. [facility], , 03/20/2025 9:45 AM
--- NOTE | 2025-03-20 09:50 | XR ---
EXAMINATION TYPE: XR chest 1V confirm line plcmt DATE OF EXAM: 03/20/2025 9:31 AM COMPARISON: Chest radiographs from; CLINICAL INDICATION: Male, 59 years old with history of line placement; [facility] TECHNIQUE: XR chest 1V confirm line plcmt Frontal view of the chest. FINDINGS: Lungs/Pleura: There is no evidence of pleural effusion, focal consolidation, or pneumothorax. Pulmonary vascularity: Unremarkable. Heart/mediastinum: Cardiomediastinal silhouette is unremarkable. Musculoskeletal: No acute osseous pathology. Other findings: None Lines/Tubes: Nasogastric tube with its distal tip and side-port projecting under the diaphragm. IMPRESSION: Nasogastric tube now in appropriate position. [facility], , 03/20/2025 9:47 AM
== END 2025-03-20 09:35 | disposition other institution (70) ==
LOC: EC 01:58
DX: K56.609 Unspecified intestinal obstruction, unspecified as to partial versus complete obstruction (principal); E66.9 Obesity, unspecified; F17.200 Nicotine dependence, unspecified, uncomplicated; Z68.43 Body mass index [BMI] 50.0-59.9, adult
CPT/HCPCS: 36415; 80053; 82150; 83605; 83690; 85025; 85610; 85730; 81001; 74177; 99285; 96365; 96368; 96375; 96376; 96361; J1200; J2765; J2405; J0692; J1171; Q9967; J1836